=== PATIENT | female | born 1935 | race African-American/Black ===

== ENCOUNTER 2022-08-31 05:41 | Inpatient (IN) | payer OTHER ==
[2022-08-31] MEDS ORDERED: ACETAMINOPHEN 1000 MG/100 ML BAG IVPB ONE (05:56)
[2022-08-31] MEDS ORDERED: ONDANSETRON 4 MG/2 ML VIAL IVPUSH ONE (05:56)
[2022-08-31] MEDS ORDERED: ACETAMINOPHEN INJECTION 100 ML IVPB ONE (06:30)
[2022-08-31] MEDS ORDERED: ONDANSETRON 4 MG/2 ML VIAL ONE (06:30)
[2022-08-31] MEDS ORDERED: SODIUM CHLORIDE 0.9% 500 ML INFUS.BAG IV ONE (06:35)
[2022-08-31 07:02] LABS: BASO % 0.5 % (0-2.0); HEMATOCRIT 39.4 % (32.4-45.2); HEMOGLOBIN 12.8 GM/dL (10.7-15.3); LYMPH % 18.9 % (8-40); MCH 31.4 pg (25.7-33.7); MCHC 32.4 g/dl (32.0-36.0); MEAN PLT VOLUME 7.3 fl (7.5-11.1); MONO % 8.6 % (3.8-10.2); PLATELET COUNT 303 10^3/uL (134-434); RBC 4.06 M/mm3 (3.60-5.2); RDW 17.1 % (11.6-15.6); WHITE BLOOD COUNT 2.9 K/mm3 (4.0-10.0)
[2022-08-31 07:14] LABS: CHLORIDE 103 mmol/L (98-107); SODIUM 138 mmol/L (136-145)
[2022-08-31 07:16] LABS: CALCIUM 8.9 mg/dL (8.5-10.1); CO2 29 mmol/L (21-32); GLUCOSE,RANDOM 110 mg/dL (74-106)
[2022-08-31 07:20] LABS: CREATININE 1.1 mg/dL (0.55-1.3); SGOT/AST 73 U/L (15-37)
[2022-08-31 07:21] LABS: BILIRUBIN,TOTAL 0.5 mg/dL (0.2-1); TOT PROT 5.9 g/dl (6.4-8.2)
[2022-08-31 07:22] LABS: ALK PHOS 90 U/L (45-117)
[2022-08-31 07:37] LABS: ANION GAP 6 MMOL/L (8-16); LACTIC ACID 2.8 mmol/L (0.4-2.0); SGPT/ALT 17 U/L (13-61)
[2022-08-31 09:13] LABS: ALBUMIN 2.1 g/dl (3.4-5.0); BLOOD UREA NITROGEN 30.7 mg/dL (7-18); CALCIUM 8.8 mg/dL (8.5-10.1)
[2022-08-31 09:18] LABS: BILIRUBIN,TOTAL 0.4 mg/dL (0.2-1); TOT PROT 5.4 g/dl (6.4-8.2)
[2022-08-31] MEDS ORDERED: SODIUM CHLORIDE 500 ML IV STA (12:47)
[2022-08-31] MEDS ORDERED: PANTOPRAZOLE 40 MG TABLET PO ONE (17:51)
[2022-08-31] MEDS ORDERED: HEPARIN NA (PORCINE) 5,000 UNITS/ML 1ML VIAL ONE (17:51)
[2022-08-31] MEDS: HEPARIN NA (PORCINE) 5,000 UNITS/ML 1ML VIAL SQ SCH ×2 (17:52→23:37)
[2022-08-31] MEDS: PANTOPRAZOLE 40 MG TABLET PO SCH (17:52)
[2022-08-31 19:07] LABS: URINE APPEARANCE CLEAR; URINE BILIRUBIN NEGATIVE (NEGATIVE); URINE COLOR YELLOW; URINE GLUCOSE (UA) NEGATIVE (NEGATIVE); URINE KETONE NEGATIVE (NEGATIVE); URINE LEUK ESTERASE NEGATIVE (NEGATIVE); URINE NITRITE NEGATIVE (NEGATIVE); URINE PROTEIN 30 (NEGATIVE); URINE UROBILINOGEN 0.2 mg/dL (0.2-1.0)
[2022-09-01] MEDS: HEPARIN NA (PORCINE) 5,000 UNITS/ML 1ML VIAL SQ SCH ×2 (06:23→21:44)
[2022-09-01 08:15] VITALS: BMI 21.7
[2022-09-01 11:50] LABS: INR 1.01 (0.83-1.09); PROTHROMBIN TIME (PATIENT) 11.6 SEC (9.7-13.0)
[2022-09-01 11:53] LABS: ACTIVATED PTT 28.7 SECONDS (25.2-36.5)
[2022-09-01] MEDS: PANTOPRAZOLE 40 MG TABLET PO SCH (12:05)
[2022-09-01 16:08] LABS: BASO % 0.2 % (0-2.0); HEMOGLOBIN 14.5 GM/dL (10.7-15.3); LYMPH % 3.7 % (8-40); MCH 32.1 pg (25.7-33.7); MEAN CELL VOLUME 97.4 fl (80-96); MEAN PLT VOLUME 6.9 fl (7.5-11.1); MONO % 6.4 % (3.8-10.2); NEUT % 89.7 % (42.8-82.8); PLATELET COUNT 265 10^3/uL (134-434); RBC 4.52 M/mm3 (3.60-5.2); RDW 17.2 % (11.6-15.6); WHITE BLOOD COUNT 4.8 K/mm3 (4.0-10.0)
[2022-09-01 16:21] LABS: BLOOD UREA NITROGEN 31.9 mg/dL (7-18); CALCIUM 9.1 mg/dL (8.5-10.1)
[2022-09-01 16:25] LABS: CREATININE 1.1 mg/dL (0.55-1.3)
[2022-09-01 16:33] LABS: LACTIC ACID 3.7 mmol/L (0.4-2.0)
[2022-09-01 17:06] LABS: BF WBC & OTHER NUCLEATED CELLS 169 /mm3; BODY FLUID MACROPHAGES 5 %; BODY FLUID MESOTHELIAL 1 %; BODY FLUID MONOCYTE 12 %
[2022-09-01] MEDS: DEXTROSE 5%-0.45% SALINE 1,000 ML IV SCH (21:52)
[2022-09-02] MEDS: ACETAMINOPHEN 325 MG TABLET (FP) PO PRN ×2 (03:01→16:13)
[2022-09-02] MEDS: HEPARIN NA (PORCINE) 5,000 UNITS/ML 1ML VIAL SQ SCH ×3 (05:59→21:28)
[2022-09-02] MEDS: PANTOPRAZOLE 40 MG TABLET PO SCH (09:59)
[2022-09-02 11:42] LABS: BASO % 0.2 % (0-2.0); HEMOGLOBIN 12.9 GM/dL (10.7-15.3); LYMPH % 2.7 % (8-40); MCH 31.2 pg (25.7-33.7); MEAN CELL VOLUME 94.6 fl (80-96); MEAN PLT VOLUME 7.5 fl (7.5-11.1); MONO % 7.8 % (3.8-10.2); NEUT % 89.3 % (42.8-82.8); PLATELET COUNT 302 10^3/uL (134-434); RBC 4.12 M/mm3 (3.60-5.2); WHITE BLOOD COUNT 6.2 K/mm3 (4.0-10.0)
[2022-09-02 12:10] LABS: CALCIUM 8.3 mg/dL (8.5-10.1)
[2022-09-02 12:12] LABS: BLOOD UREA NITROGEN 31.3 mg/dL (7-18)
[2022-09-02 12:15] LABS: CREATININE 0.9 mg/dL (0.55-1.3)
[2022-09-02] MEDS: DEXTROSE 5%-0.45% SALINE 1,000 ML IV SCH (16:14)
[2022-09-02] MEDS ORDERED: DEXTROSE 5%-0.45% SALINE 1,000 ML IV SCH (18:28)
[2022-09-03] MEDS: ACETAMINOPHEN 325 MG TABLET (FP) PO PRN ×2 (02:10→15:49)
[2022-09-03] MEDS: HEPARIN NA (PORCINE) 5,000 UNITS/ML 1ML VIAL SQ SCH ×3 (06:22→21:49)
[2022-09-03 10:37] LABS: HEMATOCRIT 43.5 % (32.4-45.2); HEMOGLOBIN 14.3 GM/dL (10.7-15.3); MCH 31.5 pg (25.7-33.7); MCHC 32.9 g/dl (32.0-36.0); MEAN CELL VOLUME 95.6 fl (80-96); MEAN PLT VOLUME 7.7 fl (7.5-11.1); PLATELET COUNT 300 10^3/uL (134-434); RBC 4.55 M/mm3 (3.60-5.2); RDW 17.6 % (11.6-15.6); WHITE BLOOD COUNT 6.4 K/mm3 (4.0-10.0)
[2022-09-03] MEDS: PANTOPRAZOLE 40 MG TABLET PO SCH (10:39)
[2022-09-03 11:01] LABS: CALCIUM 9.4 mg/dL (8.5-10.1)
[2022-09-03 11:02] LABS: BLOOD UREA NITROGEN 33.7 mg/dL (7-18)
[2022-09-03 11:19] LABS: ANISOCYTOSIS 2+; MACROCYTOSIS 1+
[2022-09-03 12:08] LABS: BODY FLUID ALBUMIN 1.9 g/dL (Not Estab.)
[2022-09-03] MEDS ORDERED: FAT EMULSIONS 20% 250 ML PREMIX INFUS.BAG IV SCH (18:04)
[2022-09-03] MEDS: AMINO ACIDS 4.25%/D5W 1,000 ML IV SCH (18:35)
[2022-09-03] MEDS: FAT EMULSION/OLIVE/SOY/PHOSPHO 250 ML IV SCH (21:48)
[2022-09-03] MEDS: MELATONIN 1 MG TABLET PO SCH (21:49)
[2022-09-04] MEDS: HEPARIN NA (PORCINE) 5,000 UNITS/ML 1ML VIAL SQ SCH ×3 (06:45→21:52)
[2022-09-04] MEDS: AMINO ACIDS 4.25%/D5W 1,000 ML IV SCH ×2 (08:28→11:49)
[2022-09-04] MEDS: PANTOPRAZOLE 40 MG TABLET PO SCH (09:27)
[2022-09-04] MEDS: ASCORBIC ACID 250 MG TABLET (FP) PO SCH ×2 (11:49→21:52)
[2022-09-04] MEDS: MULTIVITAMINS THER W-MINERALS COMBO TABLET (FP) PO SCH (11:49)
[2022-09-04] MEDS: ACETAMINOPHEN 325 MG TABLET (FP) PO PRN ×2 (17:06→21:51)
[2022-09-04] MEDS: FAT EMULSION/OLIVE/SOY/PHOSPHO 250 ML IV SCH (21:48)
[2022-09-04] MEDS: MELATONIN 1 MG TABLET PO SCH (21:52)
[2022-09-05] MEDS: HEPARIN NA (PORCINE) 5,000 UNITS/ML 1ML VIAL SQ SCH ×3 (06:28→21:51)
[2022-09-05 10:55] LABS: BASO % 0.2 % (0-2.0); EOS % 0.1 % (0-4.5); HEMATOCRIT 41.3 % (32.4-45.2); HEMOGLOBIN 13.9 GM/dL (10.7-15.3); LYMPH % 3.7 % (8-40); MCH 31.9 pg (25.7-33.7); MCHC 33.6 g/dl (32.0-36.0); MEAN CELL VOLUME 94.9 fl (80-96); MEAN PLT VOLUME 7.4 fl (7.5-11.1); MONO % 12.1 % (3.8-10.2); NEUT % 83.9 % (42.8-82.8); PLATELET COUNT 271 10^3/uL (134-434); RBC 4.35 M/mm3 (3.60-5.2); RDW 16.9 % (11.6-15.6); WHITE BLOOD COUNT 2.8 K/mm3 (4.0-10.0)
[2022-09-05] MEDS: AMINO ACIDS 4.25%/D5W 1,000 ML IV SCH ×2 (11:02→11:03)
[2022-09-05] MEDS: ACETAMINOPHEN 325 MG TABLET (FP) PO PRN ×2 (11:03→21:53)
[2022-09-05] MEDS: MULTIVITAMINS THER W-MINERALS COMBO TABLET (FP) PO SCH (11:03)
[2022-09-05] MEDS: ASCORBIC ACID 250 MG TABLET (FP) PO SCH ×2 (11:03→21:53)
[2022-09-05] MEDS: PANTOPRAZOLE 40 MG TABLET PO SCH (11:04)
[2022-09-05 11:33] LABS: CALCIUM 8.9 mg/dL (8.5-10.1)
[2022-09-05 11:34] LABS: BLOOD UREA NITROGEN 34.8 mg/dL (7-18)
[2022-09-05 11:37] LABS: CREATININE 0.7 mg/dL (0.55-1.3)
[2022-09-05] MEDS: MELATONIN 1 MG TABLET PO SCH (21:52)
[2022-09-05] MEDS: FAT EMULSION/OLIVE/SOY/PHOSPHO 250 ML IV SCH (22:49)
[2022-09-06] MEDS: HEPARIN NA (PORCINE) 5,000 UNITS/ML 1ML VIAL SQ SCH ×3 (05:47→21:29)
[2022-09-06] MEDS: PANTOPRAZOLE 40 MG TABLET PO SCH ×2 (10:46→11:49)
[2022-09-06] MEDS: AMINO ACIDS 4.25%/D5W 1,000 ML IV SCH (10:46)
[2022-09-06] MEDS: MULTIVITAMINS THER W-MINERALS COMBO TABLET (FP) PO SCH ×2 (10:46→11:49)
[2022-09-06] MEDS: ASCORBIC ACID 250 MG TABLET (FP) PO SCH ×2 (10:46→11:49)
[2022-09-06] MEDS ORDERED: LORazepam 2 MG/ML SDV VIAL IVPUSH PRN (12:55)
[2022-09-06] MEDS: PANTOPRAZOLE SODIUM 40 MG VIAL IVPUSH SCH (13:05)
[2022-09-06] MEDS: FAT EMULSION/OLIVE/SOY/PHOSPHO 250 ML IV SCH (22:20)
[2022-09-07] MEDS: FAT EMULSION/OLIVE/SOY/PHOSPHO 250 ML IV SCH ×2 (04:24→21:50)
[2022-09-07] MEDS: HEPARIN NA (PORCINE) 5,000 UNITS/ML 1ML VIAL SQ SCH ×3 (06:11→21:51)
[2022-09-07] MEDS ORDERED: AMINO ACIDS 4.25%/D5W 1,000 ML IV SCH ×2 (08:38→08:45)
[2022-09-07] MEDS: AMINO ACIDS 4.25%/D5W 1,000 ML IV SCH ×3 (08:44→13:44)
[2022-09-07 10:16] LABS: BASO % 0.7 % (0-2.0); EOS % 0.3 % (0-4.5); HEMATOCRIT 45.7 % (32.4-45.2); LYMPH % 7.1 % (8-40); MCH 31.8 pg (25.7-33.7); MCHC 32.9 g/dl (32.0-36.0); MEAN CELL VOLUME 96.6 fl (80-96); MONO % 10.1 % (3.8-10.2); NEUT % 81.8 % (42.8-82.8); PLATELET COUNT 278 10^3/uL (134-434); RBC 4.73 M/mm3 (3.60-5.2); WHITE BLOOD COUNT 2.6 K/mm3 (4.0-10.0)
[2022-09-07] MEDS ORDERED: TRIPLE LUMEN FLUSH 4 ML ML IVPUSH PRN (10:37)
[2022-09-07] MEDS: PANTOPRAZOLE SODIUM 40 MG VIAL IVPUSH SCH ×2 (11:44→13:13)
[2022-09-08] MEDS: HEPARIN NA (PORCINE) 5,000 UNITS/ML 1ML VIAL SQ SCH ×3 (05:41→21:24)
[2022-09-08] MEDS: PANTOPRAZOLE SODIUM 40 MG VIAL IVPUSH SCH ×2 (10:00→20:14)
[2022-09-08 12:09] LABS: CALCIUM 9.2 mg/dL (8.5-10.1)
[2022-09-08 12:13] LABS: CREATININE 0.7 mg/dL (0.55-1.3)
[2022-09-08] MEDS ORDERED: SODIUM POLYSTYRENE SULFONATE 15 GM/60 ML BOTTLE RC ONE ×2 (12:45→14:30)
[2022-09-08 13:31] LABS: HEMATOCRIT 39.2 % (32.4-45.2); HEMOGLOBIN 12.8 GM/dL (10.7-15.3); MCH 31.1 pg (25.7-33.7); MCHC 32.6 g/dl (32.0-36.0); MEAN CELL VOLUME 95.5 fl (80-96); MEAN PLT VOLUME 7.4 fl (7.5-11.1); PLATELET COUNT 333 10^3/uL (134-434); RBC 4.11 M/mm3 (3.60-5.2); RDW 16.7 % (11.6-15.6); WHITE BLOOD COUNT 5.6 K/mm3 (4.0-10.0)
[2022-09-08 14:05] LABS: ANISOCYTOSIS 1+; MACROCYTOSIS 1+
[2022-09-08] MEDS: AMINO ACIDS 4.25%/D5W 1,000 ML IV SCH (20:15)
[2022-09-08] MEDS: FAT EMULSION/OLIVE/SOY/PHOSPHO 250 ML IV SCH (20:40)
[2022-09-08] MEDS ORDERED: LORazepam 2 MG/ML SDV VIAL IM ONE (21:15)
[2022-09-09] MEDS: HEPARIN NA (PORCINE) 5,000 UNITS/ML 1ML VIAL SQ SCH ×3 (06:16→21:32)
[2022-09-09] MEDS: PANTOPRAZOLE SODIUM 40 MG VIAL IVPUSH SCH (16:25)
[2022-09-09] MEDS: AMINO ACIDS 4.25%/D5W 1,000 ML IV SCH (16:26)
[2022-09-09 17:03] LABS: HEMATOCRIT 39.7 % (32.4-45.2); HEMOGLOBIN 13.2 GM/dL (10.7-15.3); MCH 31.8 pg (25.7-33.7); MCHC 33.2 g/dl (32.0-36.0); MEAN CELL VOLUME 95.8 fl (80-96); MEAN PLT VOLUME 7.5 fl (7.5-11.1); PLATELET COUNT 371 10^3/uL (134-434); RBC 4.14 M/mm3 (3.60-5.2); WHITE BLOOD COUNT 8.2 K/mm3 (4.0-10.0)
[2022-09-09 17:11] LABS: CALCIUM 9.9 mg/dL (8.5-10.1)
[2022-09-09 17:12] LABS: BLOOD UREA NITROGEN 55.5 mg/dL (7-18)
[2022-09-09 17:14] LABS: CREATININE 0.9 mg/dL (0.55-1.3)
[2022-09-09 17:16] LABS: BILIRUBIN,TOTAL 0.6 mg/dL (0.2-1); TOT PROT 5.8 g/dl (6.4-8.2)
[2022-09-09 17:28] LABS: ALBUMIN 1.6 g/dl (3.4-5.0)
[2022-09-09 18:17] LABS: ANISOCYTOSIS 1+; MACROCYTOSIS 0; PLATELET ESTIMATE NORMAL
[2022-09-09] MEDS ORDERED: AMINO ACIDS 4.25%/D5W 1,000 ML IV SCH (18:42)
[2022-09-09] MEDS: FAT EMULSION/OLIVE/SOY/PHOSPHO 250 ML IV SCH (21:31)
[2022-09-10] MEDS: HEPARIN NA (PORCINE) 5,000 UNITS/ML 1ML VIAL SQ SCH (06:27)
[2022-09-10 06:39] VITALS: BP 80/42; PULSE 62; RESP 16; TEMP 94.2
[2022-09-10] MEDS: PANTOPRAZOLE SODIUM 40 MG VIAL IVPUSH SCH (09:15)
== END 2022-09-10 13:26 | disposition expired | DRG 435 ==
LOC: JER 05:41 → JERBED 14:29 → J5S 19:36
PROVIDERS: ADMIT Internal Medicine; ATTEND Internal Medicine
PROC: 0W9B30Z Drainage of Left Pleural Cavity with Drainage Device, Percutaneous Approach (ICD-10-PCS; principal; 2022-09-01)
PROC: 05HY33Z Insertion of Infusion Device into Upper Vein, Percutaneous Approach (ICD-10-PCS; 2022-09-09)
DX: C78.7 Secondary malignant neoplasm of liver and intrahepatic bile duct (principal); J96.01 Acute respiratory failure with hypoxia; J90 Pleural effusion, not elsewhere classified; C56.9 Malignant neoplasm of unspecified ovary; R18.8 Other ascites; E87.20 Acidosis, unspecified; J93.83 Other pneumothorax; J93.9 Pneumothorax, unspecified; R64 Cachexia; Z68.21 Body mass index [BMI] 21.0-21.9, adult; D72.819 Decreased white blood cell count, unspecified
CPT/HCPCS: 32557; 36415; 36569; 71045-TC-FY; 71046-TC-FY; 71260-TC; 74177-TC; 80048; 80053; 81003; 82042; 82150; 82945; 82962; 83605; 83615; 83690; 83735; 83986; 84157; 84478; 84484; 85025; 85610; 85730; 87070; 87075; 87086; 87102; 87116; 87186; 87205; 87206; 87210; 88108; 88305-TC; 93005; 93010; 99285-25; C9803-CS; J1644; Q9967; U0003; U0005